=== PATIENT | female | born 1975 | race Caucasian/White ===

== ENCOUNTER → 2020-12-23 09:08 | Outpatient (BNVA) | payer BC, SELFPAY | PROVIDERS: Family Provider Nurse Practitioner; PCP Family Medicine; Visit Provider Family Medicine | DX: E66.01 Morbid (severe) obesity due to excess calories (principal); Z68.43 Body mass index [BMI] 50.0-59.9, adult | CPT/HCPCS: 80053; 80061; 83036; 84439; 84443; 85025 ==

== ENCOUNTER 2023-03-15 09:10 | Emergency (ER) | payer BC, MEDICAID, SELFPAY ==
[2023-03-15 09:18] VITALS: BP 148/98; PULSE 118; RESP 17; TEMP 37.1; O2SAT 99; BMI 51.5
--- NOTE | 2023-03-15 09:52 | W.ED.ABDPA2 ---
HPI - Abdominal Pain General: Chief Complaint: Abdominal Pain Stated Complaint: low back pain Time Seen by Provider: 03/15/23 09:28 Source: patient Mode of arrival: ambulatory Limitations: no limitations History of Present Illness: Patient presents to the emergency department today for evaluation treatment of right-sided abdominal pain. Patient states that 3 to 4 days ago she started having generalized upper abdominal pain. She states she ran low-grade fever and had 1 or 2 episodes of vomiting during that time. Patient reports that pain has now wrapped around the right side and is primarily in the right CVA region. She states pain is worse but she has not been chilling and has not had any vomiting. She denies any change in bowel habits. She does note that eating makes her pain worse. She denies any alcohol intake. She states she does not take any drugs. She does smoke. No previous history of ulcers. No history of kidney stones. Patient had a section in the past but no other abdominal surgeries. She denies dysuria or urinary frequency. Review of Systems General: Reports: 10 or more systems reviewed and unremarkable except in HPI and below PFSH ED PFSH: Surgical History History of 2017 History of tubal ligation Social History Smoking and tobacco status: current every day smoker Alcohol intake: never Substance/Drug Use: never Physical Exam Const: COMMON NORMALS: no acute distress, patient oriented x3 and alert HENMT: COMMON NORMALS: normocephalic, atraumatic, hearing grossly normal bilaterally and moist oral mucous membranes HEAD & SCALP: normocephalic and atraumatic Eye: COMMON NORMALS: Equal, round and reactive pupils present, EOMs intact bilaterally and conjunctivae normal CONJUNCTIVA: Yes conjunctivae normal PUPIL: Yes Equal, round and reactive pupils present Neck/C-Spine: COMMON NORMALS: full ROM and no JVD Lymph: LYMPHATIC: no lymphadenopathy noted Resp: COMMON NORMALS: normal respiratory effort, No retractions, No use of accessory muscles and clear to auscultation bilaterally AUSCULTATION: clear to auscultation bilaterally Cardio: COMMON NORMALS: no JVD, regular rate and regular rhythm RATE: regular rate RHYTHM: regular rhythm GI: OTHER: Bowel sounds are difficult to hear due to body habitus. Abdomen is soft. No obvious uptake in pain on palpation in the right upper quadrant epigastric region. No guarding. : OTHER: Right CVA tenderness Back/Pelvis: COMMON NORMALS: no thoracic nor lumbar tenderness and thoraco-lumbar ROM normal Extremity: COMMON NORMALS: normal to inspection, full ROM and capillary refill normal Neuro: COMMON NORMALS: patient oriented x3 SENSORIUM/ORIENTATION: Yes alert Psych: COMMON NORMALS: mental status grossly normal, Normal thought process present, cooperative, normal affect and activity/motor behavior normal THOUGHT PROCESS: Normal thought process present Skin: COMMON NORMALS: no rashes or lesions noted and no wounds GENERAL SKIN EXAM: no rashes or lesions noted Course Vital Signs: Vital signs: Vital Signs Temperature 98.7 F 03/15/23 09:18 Pulse Rate 118 H 03/15/23 09:18 Respiratory Rate 17 03/15/23 09:18 Blood Pressure 148/98 03/15/23 09:18 Pulse Oximetry 99 03/15/23 09:18 Oxygen Delivery Me thod Room Air 03/15/23 09:18 MDM - Abdominal Pain Medical Decision Making Patient presents to the emergency department today complaining of epigastric, right upper quadrant, and right CVA tenderness. Labs and imaging were obtained to evaluate for pancreatitis, gallbladder disease, pyelonephritis, or kidney stone. Patient did have a slightly elevated white blood cell count we proceeded on with a CT exam. There was some concerns with the gallbladder but also with the pancreas. They suspected possible pancreatitis but, patient's lipase is only 27. I discussed the case with Dr. Gallo who recommended the ultrasound. Discussed all this with the patient. Patient states that she is anxious to leave and is willing to have the ultrasound performed but, would like to be discharged after that. Explained to her that I may need to consult with the surgeon however, she states she can just do follow-up. Ultrasound reveals several large stones including gallbladder sludge. Explained to her the diagnosis of a biliary colic. Explained that stones can move and cause occlusion in the bile duct. Explained that that is a surgical emergency and went over signs and symptoms for which she needs to return here to the emergency department. Patient is given antinausea medication and pain medication for home as well as a consult request to general surgery for follow-up as she is requesting to discharge at this time before placing a phone consult with general surgery. Differential Diagnosis Likely abdominal pain; Unlikely calculus of kidney, constipation, gastroenteritis or pancreatitis Lab Data 03/15/23 09:52 03/15/23 09:52 Labs/Radiology: Laboratory Results WBC 13.82 10^3/uL (3.29-11.43) H 03/15/23 09:52 RBC 5.48 10^6/uL (3.85-5.65) 03/15/23 09:52 Hgb 16.40 g/dL (11.27-16.99) 03/15/23 09:52 Hct 49.9 % (36-47) H 03/15/23 09:52 MCV 91.1 fl (85-98) 03/15/23 09:52 MCH 29.9 pg (27-33) 03/15/23 09:52 MCHC 32.9 g/dL (30-55) 03/15/23 09:52 RDW 12.8 % (12.1-15.1) 03/15/23 09:52 Plt Count 320 10^3/cmm (157-399) 03/15/23 09:52 MPV 10.6 fL (7.4-10.4) H 03/15/23 09:52 Neut % (Auto) 70.7 % 03/15/23 09:52 Lymph % (Auto) 18.5 % 03/15/23 09:52 [place] % (Auto) 7.9 % 03/15/23 09:52 Eos % (Auto) 1.7 % 03/15/23 09:52 Baso % (Auto) 0.7 % 03/15/23 09:52 Neut # (Auto) 9.77 10^3/uL (1.8-7.7) H 03/15/23 09:52 Lymph # (Auto) 2.6 10^3/uL (0.8-4.8) 03/15/23 09:52 [place] # (Auto) 1.1 10^3/uL (0.2-0.9) H 03/15/23 09:52 Eos # (Auto) 0.2 10^3/uL (0.0-0.8) 03/15/23 09:52 Baso # (Auto) 0.1 10^3/uL (0.0-0.1) 03/15/23 09:52 Nucleated RBC % (auto) 0 % 03/15/23 09:52 Nucleated RBCs # 0.0 /100WBC 03/15/23 09:52 Sodium 137 mmol/L (136-145) 03/15/23 09:52 Potassium 3.9 mmol/L (3.5-5.1) 03/15/23 09:52 Chloride 102 mmol/L (98-107) 03/15/23 09:52 Carbon Dioxide 24 mmol/L (22-29) 03/15/23 09:52 Anion Gap 14.9 (5-19) 03/15/23 09:52 BUN 16 mg/dL (6-20) 03/15/23 09:52 Creatinine 0.7 mg/dL (0.5-0.9) 03/15/23 09:52 GFR Calculation 89.7 mL/min (90-130) L 03/15/23 09:52 Glucose 103 mg/dL (65-115) 03/15/23 09:52 Calculated Osmolality 285 mOsm/kg (285-295) 03/15/23 09:52 Calcium 9.1 mg/dL (8.5-10.5) 03/15/23 09:52 Total Bilirubin 0.6 mg/dL (0.15-1.2) 03/15/23 09:52 AST 15 U/L (0-32) 03/15/23 09:52 ALT 15 U/L (0-33) 03/15/23 09:52 Alkaline Phosphatase 90 U/L (35-105) 03/15/23 09:52 C-Reactive Protein 62.6 mg/L (0.0-4.9) H 03/15/23 09:52 Total Protein 7.8 g/dL (6.6-8.7) 03/15/23 09:52 Albumin 4.0 g/dL (3.5-5.2) 03/15/23 09:52 Globulin 3.8 g/dL (1.3-4.6) 03/15/23 09:52 Lipase 27 U/L (13-60) 03/15/23 09:52 HCG, Qual Negative (Negative) 03/15/23 10:40 Urine Color Dark yellow (Yellow) 03/15/23 10:40 Urine Appearance Clear (CLEAR) 03/15/23 10:40 Urine pH 5 (5-7) 03/15/23 10:40 Ur Specific [place] 1.020 (1.005-1.030) 03/15/23 10:40 Urine Protein Trace (Negative) 03/15/23 10:40 Urine Glucose (UA) Norm (Normal) 03/15/23 10:40 Urine Ketones 1+ (Negative) H 03/15/23 10:40 Urine Blood 2+ (Negative) H 03/15/23 10:40 Urine Nitrate Negative (Negative) 03/15/23 10:40 Urine Bilirubin 1+ (Negative) H 03/15/23 10:40 Urine Urobilinogen Norm mg/dL (Negative) 03/15/23 10:40 Ur Leukocyte Esterase Negative (Negative) 03/15/23 10:40 Urine RBC 0-4 /hpf (0-2) H 03/15/23 10:40 Urine WBC 0-4 /hpf (0-5) H 03/15/23 10:40 Ur Squamous Epith Cells 0-4 /hpf (0-5) H 03/15/23 10:40 Amorphous Sediment 2+ /hpf 03/15/23 10:40 Urine Bacteria Trace /hpf (NONE) 03/15/23 10:40 Urine Mucus 4+ /hpf 03/15/23 10:40 All radiology interpretation(s) finalized by discharge Discharge Plan Discharge Patient Disposition: Home Clinical Impression: Cholelithiasis Condition: Stable Prescriptions: New ondansetron 4 mg tablet,disintegrating 4 mg PO Q8H PRN (Reason: nausea and vomiting) 5 Days Qty: 15 0RF No Action acetaminophen 325 mg Capsule 650 mg PO QID PRN (Reason: Pain) Discharge Orders: Discharge ED (Routine); Ordered 03/15/23 Ordered By: Patsy Alvarado Referrals: Saima Soria DO [Primary Care Provider] - Discharge Diet: As Directed Discharge Activity: Increase activity as tolerated Patient Instructions: Biliary Colic (ED), Gallstones (ED) Activity Restrictions/Additional Instructions: Evaluation today revealed signs of several large gallstones and gall sludge. I do think you have a condition called biliary colic where your pain intensifies and waxes and wanes. I still think you need an evaluation by general surgery and have requested a follow-up appointment be made on your behalf and you be notified of your follow-up. I am also providing use medication to help with pain. However, as we discussed, any acute worsening in condition could indicate changes requiring emergent intervention. If you have fevers, profuse vomiting, severe and unrelenting pain need to be seen and evaluated back here in the emergency department. Coding Level of Care Code ED Physician Support Coordinator for Ramón Bowers
[2023-03-15 10:05] LABS: Basophils # 0.1 10^3/uL (0.0-0.1); Basophils % 0.7 %; Eosinophils # 0.2 10^3/uL (0.0-0.8); Eosinophils % 1.7 %; Hematocrit 49.9 % (36-47); Lymphocytes # 2.6 10^3/uL (0.8-4.8); Lymphocytes % 18.5 %; Mean Corpuscular HGB Conc 32.9 g/dL (30-55); Mean Corpuscular Hemoglobin 29.9 pg (27-33); Mean Corpuscular Volume 91.1 fl (85-98); Mean Platelet Volume 10.6 fL (7.4-10.4); Monocytes # 1.1 10^3/uL (0.2-0.9); Monocytes % 7.9 %; Neutrophils # 9.77 10^3/uL (1.8-7.7); Neutrophils % 70.7 %; Nucleated Red Blood Cells % 0 %; Platelet Count 320 10^3/cmm (157-399); Red Blood Count 5.48 10^6/uL (3.85-5.65); Red Cell Distribution Width 12.8 % (12.1-15.1); White Blood Count 13.82 10^3/uL (3.29-11.43)
[2023-03-15] MEDS: sodium chloride 0.9% 1,000 ML 999 ML IV (10:16)
[2023-03-15] MEDS: metoclopramide 5 mg/mL SDV 2 mL 10 MG IVP (10:17)
[2023-03-15] MEDS: ketorolac 30 mg/mL INJ IVP (10:18)
[2023-03-15 10:19] LABS: Alanine Aminotransferase 15 U/L (0-33); Alkaline Phosphatase 90 U/L (35-105); Anion Gap 14.9 (5-19); Aspartate Amino Transferase 15 U/L (0-32); Blood Urea Nitrogen 16 mg/dL (6-20); C Reactive Protein 62.6 mg/L (0.0-4.9); Calcium 9.1 mg/dL (8.5-10.5); Carbon Dioxide 24 mmol/L (22-29); Chloride 102 mmol/L (98-107); Globulin 3.8 g/dL (1.3-4.6); Glomerular Filtration Rate 89.7 mL/min (90-130); Glucose 103 mg/dL (65-115); Lipase 27 U/L (13-60); Osmolality Calculated 285 mOsm/kg (285-295); Potassium 3.9 mmol/L (3.5-5.1); Sodium 137 mmol/L (136-145); Total Bilirubin 0.6 mg/dL (0.15-1.2); Total Protein 7.8 g/dL (6.6-8.7)
--- NOTE | 2023-03-15 10:40 | CT_ITS ---
WS: [id number] CT ABDOMEN AND PELVIS WITH CONTRAST HISTORY: abdominal pain TECHNIQUE: Imaging performed of the abdomen and pelvis with IV contrast. Single phase imaging of the abdomen. Coronal and sagittal reformats are submitted. All CT scans at [facility] use at [address] one of these dose optimization techniques: automated exposure control; mA and/or kV adjustment per patient size (includes targeted exams where dose is matched to clinical indication); or iterative re construction. IV CONTRAST: Omnipaque 350; 100 mL IV. Oral contrast: No DLP: 2799.93 COMPARISON: None available. Lower thorax: Lobulated soft tissue mass in the lingula measures 2.0 x 1.3 cm. There are additional s atellite nodules. Some of these extend along the fissure and are probably benign. LEFT hilar lymph no de 1.9 x 1.7 cm. Additional subcarinal 2.2 cm lymph node. Heart is normal size. No hiatal hernia. Liver/biliary system: Normal size with no intrahepatic dilatation. Gallbladder: Normally distended gallbladder with stones or sludge. No adjacent inflammation. No wall thickening. Normal common bile duct. Pancreas: Focal mild inflammation surrounding the uncinate process of the pancreas. Loss of the robby l pancreatic contour with soft tissue stranding. Head, neck and body of the pancreas are otherwise ne gative. Spleen: Normal size spleen. No mass or infarct. Adrenal glands: Normal. Right kidney: Normal. Left kidney: Normal. Aorta: Normal. Lymphadenopathy: None. Free fluid: None. GI tract: Stomach is nondistended. There is very mild wall thickening and inflammation involving the 2nd-3rd portion of the duodenum adjacent to the edema within the uncinate process of the pancreas. Th ere are several small adjacent lymph nodes. Abdominal wall: Fat containing umbilical hernia. Pelvis: No free fluid or adenopathy within the pelvis. Bones: Unremarkable. IMPRESSION: 1. Abnormal gallbladder. Increased density within the gallbladder. Probably stones and sludge. No pe richolecystic fluid or gallbladder wall thickening. This can be further evaluated by ultrasound. No b ile duct dilatation. 2. Inflammation surrounding the second/third portion of the duodenum and the adjacent uncinate proce ss of the pancreas. Consider focal acute pancreatitis with extension to the duodenum or duodenitis wi th extension to the uncinate process of the pancreas. Suggest short-term follow-up by CT with IV cont rast to exclude an underlying pancreatic neoplasm. 3. Lobulated soft tissue mass in the lingula with adjacent satellite nodules. The dominant mass mariano ures 2.0 x 1.3 cm. Additional RIGHT hilar and subcarinal lymphadenopathy. Recommend follow-up chest C T with IV contrast.
[2023-03-15] MEDS: iohexol 350 mg/mL 500 mL Btl (per mL) IV (10:56)
[2023-03-15 11:13] LABS: HCG Qualitative Urine. Negative (Negative)
[2023-03-15 11:18] LABS: Urine Appearance Clear (CLEAR); Urine Color Dark Yellow (Yellow)
[2023-03-15 11:19] LABS: Add Urine Microscopic? YES; Bilirubin Urine 1+ (Negative); Blood Urine 2+ (Negative); Glucose Urine UA Norm (Normal); Ketones Urine 1+ (Negative); Leukocyte Esterase Urine Negative (Negative); Nitrate Urine Negative (Negative); Protein Urine Trace (Negative); Urobilinogen Urine Norm (Negative); pH Urine 5 (5-7)
[2023-03-15 11:20] LABS: Add Urine Culture? No; Amorphous Sediment Urine 2+ /hpf; Bacteria Urine TRACE /hpf; Mucus Urine 4+ /hpf; RBC Urine 0-4 /hpf (0-2); Squamous Epithelial Cell Urine 0-4 /hpf (0-5); WBC Urine 0-4 /hpf (0-5)
--- NOTE | 2023-03-15 12:27 | US_ITS ---
WS: [id number] RIGHT UPPER QUADRANT ULTRASOUND HISTORY: RUQ/epigastric pain COMPARISON: CT abdomen 03/15/2023 Liver: 18.7 cm in length. Liver is mildly enlarged with hepatic steatosis. Portal Vein: Normal hepatopetal flow with monophasic waveform. Gallbladder: Normally distended gallbladder. Gallbladder is top normal size. There are several stones within the gallbladder. The largest stone measures 2.7 cm in diameter. No wall thickening or pericho lecystic fluid. CBD: 0.6 cm Pancreas: Obscured. Right kidney: 10.9 cm in length. Normal size and echogenicity. No hydronephrosis or mass. Aorta and IVC: Unremarkable abdominal aorta and IVC. No ascites. IMPRESSION: 1. Cholelithiasis. Several large stones are present in the gallbladder. The largest measures 2.7 cm i n diameter. No gallbladder wall thickening. 2. Normal common bile duct. 3. Mild hepatic steatosis and hepatomegaly.
--- NOTE | 2023-03-18 08:08 | PC.SOCIAL ---
General Surgery Referral Referral message sent to clinic at this time. Clinic to contact patient with appt date/time.
== END 2023-03-15 14:19 | disposition home or self-care (01) ==
PROVIDERS: Emergency Provider Physician Assistant; PCP Family Medicine
DX: K80.20 Calculus of gallbladder without cholecystitis without obstruction (principal); F17.210 Nicotine dependence, cigarettes, uncomplicated
CPT/HCPCS: 36415; 74177; 76705; 80053; 81001; 81025; 83690; 85025; 86140; 96374; 96375; 99285; J1885; J2765; J7030; Q9967

== ENCOUNTER 2023-04-17 15:20 | Outpatient (CLI) | payer BC, MEDICAID, SELFPAY ==
--- NOTE | 2023-04-17 16:00 | CTR_ITS ---
PROCEDURE INFORMATION: Exam: CT Chest With Contrast; Diagnostic Exam date and time: 04/17/2023 3:42 PM Age: 48 years old Clinical indication: Condition or disease; Pancreatic condition; Other: Lesion seen on previous scan, lung condition and disease; Pulmonary nodule, solitary; Additional info: Lung nodule, pancreatic lesion seen on previous scan, pancreas protocol TECHNIQUE: Imaging protocol: Diagnostic computed tomography of the chest with contrast. Radiation optimization: All CT scans at this facility use at least one of these dose optimization techniques: automated exposure control; mA and/or kV adjustment per patient size (includes targeted exams where dose is matched to clinical indication); or iterative reconstruction. Contrast material: [id number]; Contrast volume: 95 ml; Contrast route: INTRAVENOUS (IV); REPORTING DATA: Count of CT and Cardiac NM exams in prior 12 months: This patient has received [address] and 0 known cardiac nuclear medicine studies in the 12 months prior to the current study. COMPARISON: CT abdomen pelvis w con* [id number] 03/15/2023 10:52 AM RADIATION DOSE METRICS: Total DLP (mGy-cm): 2855.57 FINDINGS: Lungs: There is no consolidation. There is a smoothly marginated lobulated nodule in the posterosuperior lingula measuring 3.5 x 1.5 x 1.3 cm (coronal series 11, image 35, axial series 8, image 26). There are adjacent lingular satellite nodules measuring up to 8 mm diameter corresponding to the finding on abdomen pelvis CT 03/15/2023. There is a noncalcified pulmonary nodule in the left upper lobe visible on series 8, image 24 measuring 4 mm. There is a noncalcified pulmonary nodule in the left upper lobe visible on series 8, image 12 measuring 4 mm. The right lung is clear. Pleural spaces: There is no pleural effusion or pneumothorax. Heart: Heart size is normal. There is no pericardial effusion. Lymph nodes: Enlarged left hilar lymph node measures 2.9 x 1.7 cm on axial series 7, image 27. There are mildly prominent nonspecific mediastinal and right hilar lymph nodes. Vasculature: The aorta is unremarkable. There is no aneurysm. The central pulmonary arteries are unremarkable. Bones/joints: Bones are unremarkable. Soft tissues: The extrathoracic soft tissues are unremarkable. tissue sampling.(Reference: Moniquehodisha) 2. Left hilar lymphadenopathy with prominent nonspecific lymph nodes in the mediastinum and right hilum. This may be reactive or neoplastic. REFERENCES: Pancho Nevarez et al. Guidelines for Management of Incidental Pulmonary Nodules Detected on CT Images: From the Fleischner Society 2017. Radiology. 2017;284(1):228-243. PROCEDURE INFORMATION: Exam: CT Abdomen Without And With Contrast Exam date and time: 04/17/2023 3:42 PM Age: 48 years old Clinical indication: Condition or disease; Pancreatic condition; Other: Lesion seen on previous scan, lung condition and disease; Pulmonary nodule, solitary; Additional info: Lung nodule, pancreatic lesion seen on previous scan, pancreas protocol TECHNIQUE: Imaging protocol: Computed tomography of the abdomen without and with contrast. Radiation optimization: All CT scans at this facility use at least one of these dose optimization techniques: automated exposure control; mA and/or kV adjustment per patient size (includes targeted exams where dose is matched to clinical indication); or iterative reconstruction. Contrast material: [id number]; Contrast volume: 95 ml; Contrast route: INTRAVENOUS (IV); REPORTING DATA: Count of CT and Cardiac NM exams in prior 12 months: This patient has received [address] and 0 known cardiac nuclear medicine studies in the 12 months prior to the current study. COMPARISON: CT abdomen pelvis w con* [id number] 03/15/2023 10:52 AM RADIATION DOSE METRICS: Total DLP (mGy-cm): 2855.57 FINDINGS: Liver: The liver is normal. Gallbladder and bile ducts: Cholelithiasis is present. There is no sign of cholecystitis. There is no intrahepatic or extrahepatic bile duct dilation. Pancreas: There is mild fat infiltration in the pancreatic uncinate process, similar to the finding on 03/15/2023. Edema surrounding the pancreatic uncinate process seen on the prior exam has resolved. No pancreatic mass or cyst is visible. No pancreatic duct dilation is visible. Spleen: The spleen is unremarkable. Adrenal glands: The adrenal glands are unremarkable. Kidneys and ureters: The kidneys are unremarkable. No hydronephrosis or stones. No ureteral dilation. Stomach and bowel: The stomach is decompressed, preventing meaningful evaluation of wall thickness. The small bowel is nondilated. The colon is unremarkable. Appendix: The appendix is normal. Intraperitoneal space: There is no free air or significant intraperitoneal free fluid. Vasculature: The aorta is unremarkable. There is no aneurysm. The portal, splenic and superior mesenteric veins are patent. Lymph nodes: There is no lymphadenopathy in the retroperitoneum, mesentery, pelvis or inguinal regions. Urinary bladder: The urinary bladder is decompressed, preventing meaningful evaluation of wall thickness. Reproductive: There is a partially exophytic 19 mm nodule in the right aspect of uterus suggesting a leiomyoma. There is no adnexal mass or large cyst. Bones/joints: There is mild degenerative disease in the lumbar spine. The pelvis and hips are unremarkable. Soft tissues: The abdominal wall is intact. CT/CT chest abd wo/w con IMPRESSION: 1. 3.5 cm lingular pulmonary mass with adjacent satellite nodules and smaller nodules in the left upper lobe. Consider non-emergent PET/CT, or IMPRESSION: No pathologic findings in the pancreas. Mild peripancreatic edema has resolved since the prior CT.
[2023-04-17] MEDS: iohexol 350 mg/mL 500 mL Btl (per mL) IV (16:13)
== END 2023-04-17 15:21 | disposition home or self-care (01) ==
LOC: RAD 15:21
PROVIDERS: PCP Family Medicine; Visit Provider Surgery
DX: R91.1 Solitary pulmonary nodule (principal); K86.9 Disease of pancreas, unspecified; R91.8 Other nonspecific abnormal finding of lung field
CPT/HCPCS: 71260; 74170; Q9967

== ENCOUNTER 2023-04-30 07:53 | Day surgery (SDC) | payer BC, MEDICAID, SELFPAY ==
[2023-04-30] VITALS (11 sets, daily range): BP systolic 101–149; BP diastolic 74–100; PULSE 84–95; RESP 16–22; TEMP 36.1–36.6; O2SAT 95–97; BMI 53.2
[2023-04-30] MEDS: sodium chloride 0.9% 1,000 ML 30 ML IV (08:31)
[2023-04-30 08:48] LABS: OR HCG Qualitative Urine Negative (Negative)
--- NOTE | 2023-04-30 09:20 | SC_ITS ---
WS: [id number] C-ARM RADIOGRAPHS CHEST; 2 IMAGES HISTORY: left lingular lesion COMPARISON: None available. Imaging is performed during bronchoscopy and biopsy performed by Dr. Holder. IMPRESSION: Imaging guidance performed during bronchoscopy.
--- NOTE | 2023-04-30 09:23 | P.HPUD_ITS ---
Surgery/Procedure H&P Update DATE OF PROCEDURE: April 30, 2023 DATE H&P PERFORMED: 04/23/23 CHANGES TO PREVIOUS DOCUMENTATION: none PRIMARY INDICATION FOR PROCEDURE: rule out malignancy PLANNED PROCEDURE: Operation Date: 04/30/23 09:45 Proposed Procedures p ION with EBUS, [id number], 34848, 78422, 00427, 22908, 23109, 67071, 45653, 08371, 08081, 70937, 51978, 01951,R91.1(Not Applicable) - Jose Holder MD s Ebus(Not Applicable) - Jose Holder MD
--- NOTE | 2023-04-30 09:23 | W.PM.OPSUD ---
Surgery/Procedure H&P Update DATE OF PROCEDURE: April 30, 2023 DATE H&P PERFORMED: 04/23/23 CHANGES TO PREVIOUS DOCUMENTATION: none PRIMARY INDICATION FOR PROCEDURE: rule out malignancy PLANNED PROCEDURE: Operation Date: 04/30/23 09:45 Proposed Procedures p ION with EBUS, 54518, 17252, 47563, 75364, 80372, 26434, 87396, 63863, 43646, 88404, 16747, 50493, 21956,R91.1(Not Applicable) - Jose Holder MD s Ebus(Not Applicable) - Jose Holder MD
--- NOTE | 2023-04-30 09:24 | ANES.PREANE2 ---
Pre-Anesthetic Assessment Height/Weight: Height 1.68 m Weight 149.685 kg Temp Pulse Resp BP Pulse Ox O2 Del Method 98 F 90 20 H 131/100 97 Room Air 04/30/23 08:18 04/30/23 08:18 04/30/23 08:18 04/30/23 08:18 04/30/23 08:18 04/30/23 08:18 Operation Date: 04/30/23 09:45 Proposed Procedures p ION with EBUS, 44306, 63584, 64172, 84306, 76942, 33218, 47772, 83527, 56885, 39996, 82508, 59115, 48859,R91.1(Not Applicable) - Jose Holder MD s Ebus(Not Applicable) - Jose Holder MD Familial anesthetic complications: None Was Beta Nimco taken within 24 hours: N/A Was Clonidine taken within 24 hours: N/A Last intake: Intake Last Liquid Date 04/29/23 Last Liquid Time 23:59 Last Solid Date 04/29/23 Last Solid Time 22:30 Social Tobacco and No alcohol Exam alert, oriented x 3, clear to auscultation bilaterally and regular rate & rhythm Airway Mallampati: Class II Dentition: full Metabolic Morbid Obesity Anesthetic Plan ASA status: 2 Anesthesia: General Risk of > 500 ml blood loss (7ml/kg in children): No Medications/Allergies Home Medications Medication Instructions Recorded Confirmed Last Taken Type acetaminophen 325 mg capsule 650 mg PO QID PRN Pain 03/15/23 04/26/23 04/23/23 History ondansetron 4 mg disintegrating 4 mg PO Q8H 04/15/23 04/26/23 Unknown History tablet nicotine See Rx Instructions transdermal 04/23/23 04/26/23 Unknown Rx 21mg/24hr-14mg/24hr-7mg/24hr daily .COMPLEX #56 patches transderm patches,sequentl tiotropium bromide 18 mcg capsule 1 cap inhalation DAILY #60 04/23/23 04/26/23 04/29/23 Rx with inhalation device (Spiriva inhalations with HandiHaler) Allergies Allergy/AdvReac Type Severity Reaction Status Date / Time No Known Allergies Allergy Verified 04/26/23 12:09 Current Medications Generic Name Dose Route Start Last Admin Trade Name Freq PRN Reason Stop Dose Admin Sodium Chloride 1,000 mls @ 30 mls/hr 04/30/23 08:00 04/30/23 08:31 Sodium Chloride 0.9% IV 05/01/23 07:59 30 mls/hr .Q24H SOFYA Administration PFSH Anesthesia Medical History Family history of diabetes mellitus Family history of heart disease in male family member before age 55 Surgical History History of 2017 History of tubal ligation Social History Smoking and tobacco/nicotine status: current every day tobacco/nicotine user cigarettes Packs smoked per day: 0.5 Years cigarettes smoked: 27 [ Other cigarette details: Started 1995] Alcohol intake: never Substance/Drug Use: never Female Reproductive History Date of last menstrual period: 04/17/23 Data Anesthesia Cardiac Studies: No Data to Display
[2023-04-30] MEDS: lidocaine 1% INJ 20 mL XX (10:39)
[2023-04-30 11:51] LABS: Cyto Order Verification Order Verified
[2023-04-30 11:52] LABS: Apprearance, Bronch Wash Bloody (CLEAR); Color, Bronc Wash Slight Pink
--- NOTE | 2023-04-30 12:48 | PM.OP ---
Operative Report Date of procedure: April 30, 2023 Pre-op diagnosis: SUSPECTED MALIGNANCY Post-op diagnosis: Appears benign on prelim pathology Procedure done: 96419 Dx Bronchoscope w/Washings or airway inspection 13530 Bx Bronchoscope w/Brushings or protected brushings 32755 Dx Bronchoscope w/BAL 32844 Bronch with computer image guided Navigational Bronchoscopy 51542 Bronchoscopy w/Transbronchial lung biopsy(s), single lobe 32518 Bronchoscopy w/Transbronchial needle aspiration biopsy(s), tracheal, main stem, and/or lobar bronchus 32636 Bronchoscopy w/ therapeutic aspiration of the tracheobronchial tree (clearance of airway secretions, removal of mucus plugs) 72976 EBUS Sampling 3 or more nodes 89184 EBUS Diag or Interven Peripheral lesion (radial EBUS) Surgeon: Jose Holder MD Brief History: Ms. Patrica Dale is a 48-year-old female with past medical history of chronic smoking, possible gallstone disease-referred by general surgeon Dr. Kimble for evaluation of pulmonary nodule. Patient reported having upper abdominal pain that radiated to the left and right side of the abdomen and subsequently to the back associated with vomiting and low-grade fever-presented to the emergency room 03/15/2023-.? Ultrasound of the gallbladder show evidence of gallstones with a largest stone measuring 2.7 cm.? She was recommended to follow-up with general surgery.? During ED presentation a CT scan of the abdomen and pelvis was done with significant findings concerning for a left lung nodule for which a CT of the chest was recommended and also there was inflammation and haziness in the head of the pancreas which could not be further characterized, short-term follow-up CT of the abdomen was also recommended. Follow-up CT chest/abdomen/pelvis 04/17/2023-showed?3.5 cm lingular pulmonary mass with adjacent satellite nodules and smaller nodules in the left upper lobe.there is evidence of hilar, mediastinal lymphadenopathy as well.? No pathologic findings in the pancreas. Mild peripancreatic edema has today she resolved since the prior CT.There is a partially exophytic 19 mm nodule in the right aspect of uterus suggesting a leiomyoma.? ? She tells me that she smokes 0.5 ppd X 27 years, started at age 21. She denied SOB.? Denies any cough, weight loss, fatigue Today patient is scheduled for navigational bronchoscopic evaluation of left lingular lesion as well as endobronchial guided biopsies of hilar/mediastinal lymph nodes. Indication for the procedure, nature of the procedure, alternatives, complications including bleeding/pneumothorax, benefits were thoroughly discussed and obtained patient consent prior to the procedure. Procedure: 59884 Dx Bronchoscope w/Washings or airway inspection 40470 Bx Bronchoscope w/Brushings or protected brushings 50599 Dx Bronchoscope w/BAL 84278 Bronch with computer image guided Navigational Bronchoscopy 87883 Bronchoscopy w/Transbronchial lung biopsy(s), single lobe 12086 Bronchoscopy w/Transbronchial needle aspiration biopsy(s), tracheal, main stem, and/or lobar bronchus 84069 Bronchoscopy w/ therapeutic aspiration of the tracheobronchial tree (clearance of airway secretions, removal of mucus plugs) 42741 EBUS Sampling 3 or more nodes 70642 EBUS Diag or Interven Peripheral lesion (radial EBUS) Indication: Description of the procedure: The procedure was explained to the patient and the consent was obtained. The patient was brought to the OR. Anesthesia: The patient underwent endotracheal intubation for general anesthesia. Local anesthesia: The distal trachea-Liset, right and left mainstem bronchi were anesthetized with 1% lidocaine, 3 mL. Following induction of general anesthesia, the flexible bronchoscope was advanced through the ET tube. The lower trachea mucosa appeared normal, no endotracheal lesion was seen. The liset was sharp. The liset, the right and left mainstem bronchi are anesthetized with 1% lidocaine. In a systematic manner bilateral bronchial tree was then examined. The bronchoscope was then introduced into the right mainstem bronchus. The right upper lobe, right middle lobe and right lower lobe bronchi were examined up to the third subsegmental level. There is anatomic variant with what appeared to be apical segment of right upper lobe directly taking off from lower trachea. There are no endobronchial lesions. Then advanced bronchoscope further down into bronchus intermedius and again seen right upper lobe. Rest of the bronchus intermedius, right lower lobe, right middle lobe subsegments did not show any anatomical abnormality. Mucosa appeared normal with no endobronchial lesion, active bleeding or mucous plug.There were significant mucus secretions which were suctioned right away.(04664). The bronchoscope was advanced into the left mainstem bronchus. The mucosa appeared normal with no endobronchial lesions. The left upper lobe, lingula and left lower lobe bronchi were examined up to the third subsegmental level and no abnormalities were identified. Mucosa appeared normal with no endobronchial lesion, active bleeding or mucous plug. There were some mucus secretions throughout left bronchial tree-which were suctioned right away.(28282) After initial inspection as well as airway clearance with flexible bronchoscope(71574), ION robotic assisted navigational bronchoscope (76849) was introduced-and lesion in superior segment of left lingula was accessed. After confirming the location with radial EBUS (88414), as evidenced with good concentric signal with couple of pulsating blood vessels; under the fluoroscopy guidance -we were able to obtain biopsies using fine-needle, brushing, forceps.There was some evidence of grade 2 bleeding-which was controlled with instillation of cold saline. BAL was also taken from superior segment of left lingula. After making sure there is no active bleeding navigational bronchoscope was retracted and introduced Endobronchial ultrasound EBUS (39658). With the help of EBUS, identified lymph nodes at station 4R, station 11 R, station 7, station 11 L. Fine-needle aspiration biopsies were taken from lymph nodes at Station 4R, station 11 R, station 7, station 11 L After taking the biopsies EBUS retracted-diagnostic bronchoscope was introduced to check for any evidence of active bleeding. There was some evidence of bleeding-controlled with instillation of cold saline. After making sure there is no active bleeding bronchoscope was retracted and procedure terminated. Samples: A. Lesion in Superior segment of left lingula 1. Total of 3 passes were made using needle aspiration(26929); 1 pass sent for rapid onsite evaluation for pathology; reported not seeing any malignant cells. Rest of the material placed in formalin for histopathology 2. Targeting the same area 3 passes were made using forceps (71068); all the material placed in formalin for histopathology 3. Targeting the same area 1 pass were made using Cytobrush (86019); sample placed in formalin for histopathology 4. Bronchoscope was wedged at the entrance of the superior segment of left lingula, 20 mL of saline was instilled and returned 13 mL of bronchoalveolar lavage (49601). The fluid was mixed with blood and specks of tissue. Samples for cell count, cytology, cultures B. EBUS guided Fine-needle aspiration biopsies were taken from station 4R, station 11 R, station 7, station 11 L (81801) 1. Total of 3 passes were made using needle aspiration(62299) from station 4R; 1 pass sent for rapid onsite evaluation for pathology; reported not seeing any malignant cells. Rest of the material placed in formalin for histopathology 2. Total of 3 passes were made using needle aspiration(37921) from station 11R; 1 pass sent for rapid onsite evaluation for pathology; reported not seeing any malignant cells. Rest of the material placed in formalin for histopathology 3. Total of 3 passes were made using needle aspiration(06207) from station 7; 1 pass sent for rapid onsite evaluation for pathology; reported not seeing any malignant cells. Rest of the material placed in formalin for histopathology 4. Total of 3 passes were made using needle aspiration(79781) from station 11L : 1 pass sent for rapid onsite evaluation for pathology; reported not seeing any malignant cells. Rest of the material placed in formalin for histopathology Complications: None.The patient was extubated and brought to the PACU in stable condition. Postprocedure chest x-ray: There is no evidence of pneumothorax Disposition: Patient can be discharged home in stable condition. Pt, and her are aware that I am going to call them to update final biopsy results once available. Related Problem List Diagnoses (1) Lung nodule: (2) Smoker:
--- NOTE | 2023-04-30 12:57 | XR_ITS ---
WS: [id number] CHEST, 1 view. HISTORY: post op ion COMPARISON: 04/17/2023 No pneumothorax or complication status post biopsy by bronchoscopy. Lung volumes are decreased. Hazy attenuation over both lungs is probably due to body habitus and the low lung volumes. No pleural effusion or pneumothorax. Cardiac size: Normal. Mediastinum/Aorta: Normal mediastinum. No osseous abnormality seen. IMPRESSION: No pneumothorax or hemorrhage status post bronchoscopy. Notified Jose Holder MD at 04/30/2023 1:16 PM.
[2023-04-30] MEDS: ondansetron 2 mg/ML SDV 2 mL 4 MG IVP (13:27)
--- NOTE | 2023-04-30 14:09 | ANE.PACU2 ---
Inpatient post-anesthesia follow up: Airway intact: Yes Vital signs: Temperature 97 F Pulse Rate 85 Respiratory Rate 18 Blood Pressure 124/91 Pulse Oximetry 97 Oxygen Delivery Me thod Room Air Oxygen Flow Rate Fraction of Inspir ed Oxygen Hydration adequate: Yes Nausea and vomiting: No Pain level: 1 Mental status: Baseline
[2023-04-30 15:06] LABS: Total Cells Counted Bronch 200
== END 2023-04-30 14:07 | disposition home or self-care (01) ==
PROVIDERS: Anesthesiology; Internal Medicine Pulmonary Disease; PCP Family Medicine; Visit Provider Pathology Anatomic Pathology & Clinical Pathology
PROC: 0BJ08ZZ Inspection of Tracheobronchial Tree, Via Natural or Artificial Opening Endoscopic (ICD-10-PCS; CPT 31622; principal; 2023-04-30 09:35)
PROC: BB4BZZZ Ultrasonography of Pleura (ICD-10-PCS; 2023-04-30 09:35)
DX: R91.1 Solitary pulmonary nodule (principal); F17.210 Nicotine dependence, cigarettes, uncomplicated; E66.01 Morbid (severe) obesity due to excess calories; Z68.43 Body mass index [BMI] 50.0-59.9, adult
CPT/HCPCS: 31623; 31624; 31627; 31628; 31629; 31645; 31653; 31654; 71045; 76000; 80503; 81025; 84703; 87070; 87205; 88112; 88305; 88312; 88342; 89050; J0330; J1100; J2250; J2405; J2704; J2710; J3010; J3490; J7030

== ENCOUNTER 2023-05-14 13:58 | Outpatient (CLI) | payer BC, MEDICAID, SELFPAY ==
--- NOTE | 2023-05-14 11:30 | PETR_ITS ---
PROCEDURE INFORMATION: Exam: PET/CT Skull Base to Mid-thigh Exam date and time: 05/14/2023 12:09 PM Age: 48 years old Clinical indication: Symptoms: Pulmonary nodule LABS AND CLINICAL REPORTS: Glucose: 91 mg/dl Treatment strategy for malignancy (PET staging): Restaging (PS) TECHNIQUE: Imaging protocol: Following at least four-hour fasting and following the injection of radiopharmaceutical, low dose CT images were obtained. Then, PET images were obtained. Attenuation corrected images were constructed using the CT scan. Fused images of PET and CT were reviewed. The standardized uptake values (SUV) reported below are maximum values within a region of interest, expressed in gm/ml. Exam includes orbital meatal line to mid-thigh. Radiopharmaceutical: 13.15 mCi F-18 FDG (Fluorodeoxyglucose), IV. Time of imaging post radiopharmaceutical administration: 1 hour Injection site: Information is not available COMPARISON: CT chest abd wo/w con 04/17/2023 3:42 PM FINDINGS: Brain: Visualized brain has normal physiologic uptake. Pharynx: No abnormal uptake. Larynx: No abnormal uptake. Lungs, pleura and trachea: No abnormal uptake. The cluster of nodules in the lingula with the largest elongated nodular opacity measuring 3.5 cm in qcin-fg-alms diameter (axial image 99) with adjacent satellite subcentimeter lung nodules is not FDG avid (1.2 SUV) compatible with benign finding. No pleural effusion. Heart: Normal physiologic uptake. Mediastinal space: No abnormal uptake. Liver: No abnormal uptake. Gallbladder and bile ducts: No abnormal uptake. Large gallstones in the gallbladder measuring up to 2.3 cm. Pancreas: No abnormal uptake. Spleen: No abnormal uptake. No splenomegaly. Adrenal glands: No abnormal uptake. No nodules. Kidneys and ureters: Normal physiologic uptake. No hydronephrosis. Stomach and bowel: No abnormal uptake. Vasculature: No abnormal uptake. No aortic aneurysm. Lymph nodes: No abnormal uptake. Mildly enlarged mediastinal lymph nodes measuring up to 1.2 cm in the short axis and left hilar lymph node measuring 1.5 cm in the short axis on axial image 99 are not FDG avid suggestive of benign findings. No FDG avid lymphadenopathy in the head, neck, chest, abdomen, pelvis, and extremities. Bones/joints: No abnormal uptake in the visualized axial and appendicular skeleton. Grade 1 degenerative anterolisthesis of L4 associated with L4-L5 facet arthropathy Soft tissues: No abnormal uptake in the visualized head, neck, chest, abdomen, pelvis, and extremities. PET[facility] SUB[facility] [id number] IMPRESSION: No abnormal radiotracer uptake to suggest malignancy. Non FDG avid cluster of branching nodules in the lingula and non FDG avid mediastinal and left hilar lymph nodes suggestive of benign findings.
== END 2023-05-14 13:59 | disposition home or self-care (01) ==
LOC: RAD 13:59
PROVIDERS: PCP Family Medicine; Visit Provider Internal Medicine Pulmonary Disease
DX: R91.1 Solitary pulmonary nodule (principal)
CPT/HCPCS: 78815; A9552

== ENCOUNTER 2023-05-29 11:07 | Outpatient (CLI) | payer BC, MEDICAID, SELFPAY | END 2023-05-29 11:08 | disposition home or self-care (01) | LOC: RT 11:08 | PROVIDERS: PCP Family Medicine; Visit Provider Internal Medicine Pulmonary Disease | DX: R06.02 Shortness of breath (principal) | CPT/HCPCS: 94010; 94729 ==

== ENCOUNTER 2023-07-31 06:25 | Day surgery (SDC) | payer BC, MEDICAID, SELFPAY ==
[2023-07-31] VITALS (11 sets, daily range): BP systolic 101–156; BP diastolic 64–100; PULSE 65–95; RESP 12–18; TEMP 36.3–36.8; O2SAT 94–99; BMI 51.1
--- NOTE | 2023-07-31 06:41 | W.PM.OPSFHP ---
Same Day Surgery H&P Indication for Procedure/HPI DATE OF PROCEDURE: July 31, 2023 CHIEF COMPLAINT/INDICATIONFOR SURGICAL PROCEDURE: symptomatic cholelithiasis PREOP DIAGNOSIS: Symptomatic cholelithiasis PLANNED PROCEDURE: Operation Date: 07/31/23 08:00 Proposed Procedures p 43395 lap eusebio K80.50(Not Applicable) - Alexis Kimble MD Medications/Allergies* Home Medications Medication Instructions Recorded Confirmed Type acetaminophen 325 mg capsule 650 mg PO QID PRN Pain 03/15/23 07/30/23 History ondansetron 4 mg disintegrating 4 mg PO Q8H 04/15/23 07/31/23 History tablet Allergies/Adverse Reactions Allergy/AdvReac Type Severity Reaction Status Date / Time No Known Allergies Allergy Verified 07/31/23 06:35 Pertinent History/Comorbid Conditions* Medical History (Updated 04/24/23 @ 13:41 by Jose Holder MD) Family history of heart disease in male family member before age 55 Family history of diabetes mellitus Surgical History (Updated 12/22/20 @ 13:24 by Saima Soria DO) History of tubal ligation History of 2016 Social History Smoking and tobacco/nicotine status: current every day tobacco/nicotine user cigarettes Packs smoked per day: 0.5 Years cigarettes smoked: 27 [ Other cigarette details: Started 1995] Alcohol intake: never Substance/Drug Use: never Pertinent Exam Findings alert, oriented x 3, clear to auscultation bilaterally, regular rate & rhythm and operative site marked Recommendations Surgery/Procedure today Coding Level of Care Code Acute Code for Chg Fwd
[2023-07-31 06:45] LABS: OR HCG Qualitative Urine Negative (Negative)
[2023-07-31] MEDS: sodium chloride 0.9% 1,000 ML 30 ML IV (06:55)
[2023-07-31] MEDS: scopolamine 1.5 Patch 1 PATCH TRANSDERMA (07:55)
--- NOTE | 2023-07-31 07:55 | ANES.PREANE2 ---
Pre-Anesthetic Assessment Height/Weight: Height 1.68 m Weight 143.789 kg Temp Pulse Resp BP Pulse Ox O2 Del Method 97.3 F L 95 18 156/100 94 Room Air 07/31/23 06:51 07/31/23 06:51 07/31/23 06:51 07/31/23 06:51 07/31/23 06:51 07/31/23 06:51 Preop Diagnosis: Symptomatic cholelithiasis Operation Date: 07/31/23 08:00 Proposed Procedures p 79121 lap eusebio K80.50(Not Applicable) - Alexis Kimble MD Familial anesthetic complications: None Was Beta Nimco taken within 24 hours: N/A Was Clonidine taken within 24 hours: N/A Last intake: Intake Last Liquid Date 07/30/23 Last Liquid Time 20:00 Last Solid Date 07/30/23 Last Solid Time 18:00 Social Tobacco and No alcohol Exam alert, oriented x 3, clear to auscultation bilaterally and regular rate & rhythm Airway Mallampati: Class III Dentition: full Comments: Comments: grade I airway with previous surgery Metabolic Morbid Obesity Anesthetic Plan ASA status: 2 Anesthesia: General Risk of > 500 ml blood loss (7ml/kg in children): No Medications/Allergies Home Medications Medication Instructions Recorded Confirmed Last Taken Type acetaminophen 325 mg capsule 650 mg PO QID PRN Pain 03/15/23 07/30/23 07/17/23 History ondansetron 4 mg disintegrating 4 mg PO Q8H 04/15/23 07/31/23 Unknown History tablet tiotropium bromide 18 mcg capsule 1 cap inhalation DAILY #60 04/23/23 07/30/23 07/28/23 Rx with inhalation device (Spiriva inhalations with HandiHaler) Allergies Allergy/AdvReac Type Severity Reaction Status Date / Time No Known Allergies Allergy Verified 07/31/23 06:35 Current Medications Generic Name Dose Route Start Last Admin Trade Name Freq PRN Reason Stop Dose Admin Sodium Chloride 1,000 mls @ 30 mls/hr 07/31/23 06:30 07/31/23 06:55 Sodium Chloride 0.9% IV 08/01/23 06:29 30 mls/hr .Q24H SOFYA Administration PFSH Anesthesia Medical History Family history of heart disease in male family member before age 55 Family history of diabetes mellitus Surgical History History of tubal ligation History of 2016 Social History Smoking and tobacco/nicotine status: current every day tobacco/nicotine user cigarettes Packs smoked per day: 0.5 Years cigarettes smoked: 27 [ Other cigarette details: Started 1995] Alcohol intake: never Substance/Drug Use: never Data Anesthesia Cardiac Studies: No Data to Display
[2023-07-31] MEDS: ceFAZolin 2,000 MG in sodium chloride 0.9% (plus) 50 ML 100 MG IV (08:30)
[2023-07-31] MEDS: ceFAZolin 1,000 MG in sodium chloride 0.9% (plus) 50 ML 100 MG IV (08:31)
[2023-07-31] MEDS: lidocaine-epi 1% PF 1:200,000 30 mL SDV INJECTION (09:01)
[2023-07-31] MEDS: BUPivacaine 0.25% INJ 30 mL INJECTION (09:02)
--- NOTE | 2023-07-31 10:23 | P.OP_ITS ---
Operative Report Date of procedure: July 31, 2023 Pre-op diagnosis: Symptomatic cholelithiasis Post-op diagnosis: Same Post-op findings: Large amount of fat infiltration of the hepatocystic triangle and the gallbladder wall. Adhesions from the omentum to the liver. Fatty liver Procedure done: Laparoscopic cholecystectomy Specimens removed/disposition: Gallbladder Surgeon: Alexis Kimble MD Industrial Security Analyst: JULIO CÉSAR OR Staff Estimated blood loss: 10 Complications: None apparent Brief History: This is a 48-year-old female who presented to my clinic with symptomatic cholelithiasis laparoscopic cholecystectomy was indicated. After discussion of all the risk and benefits as documented in my preop note we decided to proceed with laparoscopic cholecystectomy Procedure: Patient was brought into the OR. Placed in a Supine position. General esthesia was given. The abdomen was prepped and draped in the usual sterile fashion. Timeout was conducted. The abdomen was accessed in the left upper quadrant using a 5 mm Optiview trocar under direct visualization. Pneumoperitoneum was achieved and immediate laparoscopy showed evidence of no injury during entry. A 2 mm trocar was placed in the supraumbilical position under direct visualization and additional 5 mm trocars were placed in the epigastrium right upper quadrant right flank positions under direct visualization. There were significant adhesions from the omentum to the liver, these additions were taken down with electrocautery. I then proceeded to retract the gallbladder cephalad, retraction was limited due to very stiff liver that was noted to be fatty. I then used a left upper quadrant trocar site and an Endo Kitner to retract the omentum and bowel in a caudal direction to allow visualization of the hepatocystic triangle. The gallbladder was noted to be deeply infiltrated with fat. I retracted the infundibulum of the gallbladder to the inferolateral direction to open up the hepatocystic triangle. I then proceeded to open the peritoneum anterior to the hepatocystic triangle using electrocautery, this opening was covering the medial and lateral direction to the edges of the liver and then on the sides of the gallbladder. Careful blunt dissection was done of the hepatocystic triangle, the cystic duct and artery were identified and encircled, dissection was very challenging due to the amount of fat in the area. The lower third of the gallbladder was elevated from the liver bed. Critical view of safety was achieved, the cystic duct and artery were double clipped proximally and single clipped distally. They were then transected. I then proceeded to remove the gallbladder from the liver bed using electrocautery. During removal a small hole was created in the gallbladder and therefore I used a suction irrigation to remove all the bile from the gallbladder. I then proceeded to remove the specimen through the umbilical trocar site on an Endo Catch bag. This was done under direct visualization. I then proceeded to evaluate the liver bed for hemostasis and the clips also were noted to be in good position, no evidence of bleeding or bile at the level of the resection was noted. The cavity was suctioned and irrigated and no evidence of bleeding was noted. The supraumbilical trocar site was then closed under visualization using a Jake-Venice suture passer with a 0 Vicryl. I then proceeded to remove the the epigastric trocar and left upper quadrant trocar and direct visualization and the remainder the trocars were used to remove the pneumoperitoneum and subsequently removed. The wounds were then closed in layers using Vicryl for the subcutaneous tissue and Monocryl for the skin. Dermabond was applied. At the end of the procedure all counts were correct. The patient tolerated well the procedure and was transferred to the PACU in stable condition.
[2023-07-31] MEDS: fentaNYL 50 mcg/mL INJ 2mL IVP (10:40)
[2023-07-31] MEDS: oxyCODONE 5 mg IR Tab/Cap PO (11:17)
--- NOTE | 2023-07-31 12:20 | ANE.PACU2 ---
Inpatient post-anesthesia follow up: Airway intact: Yes Vital signs: Temperature 98.0 F Pulse Rate 65 Respiratory Rate 18 Blood Pressure 128/76 Pulse Oximetry 97 Oxygen Delivery Me thod Room Air Oxygen Flow Rate 6 Fraction of Inspir ed Oxygen Hydration adequate: Yes Nausea and vomiting: No Pain level: 1 Mental status: Baseline
== END 2023-07-31 12:20 | disposition home or self-care (01) ==
PROVIDERS: Anesthesiology; PCP Family Medicine; Visit Provider Surgery
PROC: 0FT44ZZ Resection of Gallbladder, Percutaneous Endoscopic Approach (ICD-10-PCS; CPT 47562; principal; 2023-07-31 07:50)
DX: K80.10 Calculus of gallbladder with chronic cholecystitis without obstruction (principal); K76.0 Fatty (change of) liver, not elsewhere classified; K66.0 Peritoneal adhesions (postprocedural) (postinfection); E66.01 Morbid (severe) obesity due to excess calories; Z68.43 Body mass index [BMI] 50.0-59.9, adult; Z83.3 Family history of diabetes mellitus; Z82.49 Family history of ischemic heart disease and other diseases of the circulatory system; F17.210 Nicotine dependence, cigarettes, uncomplicated
CPT/HCPCS: 47562; 84703; 88304; J0690; J2250; J2704; J2710; J3010; J3490; J7030